=== PATIENT | male | born 2000 | race Caucasian/White ===

== ENCOUNTER 2025-06-15 08:47 | Emergency (ER) | payer OTHER, SELFPAY ==
--- OUTSIDE RECORDS SUMMARY | 2023-06-06 05:00 | XMS_ITS | Continuity of Care Document ---
Author Organization [place] [facility] Address [address] [place] [place] [address] Phone Care Team Providers Care Wide Area Network Systems Administrator Name Role Phone Shimon CRUZARLYN, Sami Unavailable Un available Allergies, Adverse Reactions, Alerts Substance Reaction Status Criticality No Known Allergies Active No Inform ation Medications Medication Instructions Dosage Effective Dates (start - stop) Status Comments Zoloft 50 mg tablet take 1 tablet by ora l route every day 50 MG - Active Procedures Procedure Date STREP A ASSAY W/OPTIC OFFICE/OUTPATIENT VISIT, EST OFFICE/OUTPATIENT VISIT, [facility] Advance Directives Directive Yes / No Effective Date File Name No Information Encounters Encounter Description Practice Location Reason(s) For Visit Diagnoses Date Provider Providers Copied on Encounter OFFICE/OUTPAT IENT VISIT, [facility], [address], [place], [id number], tel:[phone] [facility] Cold symptoms (chief complaint) Acute pharyngitis, unspecified etiology 3 Taylor lawrence [facility] Sami. [address], [id number] , [place]. tel:[phone] Referring Provider: Sami patel [facility], [address], [place], [address] . tel:[phone] OFFICE/OUTPAT IENT VISIT, [facility], [address], [place], [place], [id number], [place] tel:[phone] [facility] STI Testing (chief complaint) sti (chief complaint) note (chief complaint) Exposure to chlamydiaEncounter for screening for infections with a predominantly sexual mode of transmission 3 [place]. [address], [place], [id number] , [place]. tel:[phone] Referring Provider: Katheryn Funk PA-C, [address] [place], [address] . tel:[phone] Family History Family Member Type Diagnosis Age At Onset No Information Payers Payer name Insurance type Covered constitution party ID Dylan wooten(s) [facility] [id number] Social History Type Description Quantity Date Captured Comments Alcohol Use Details Caffeine Use Details energy drinks Tobacco Use Status Current non-smoker Smoking Status Never smoker Sex Male Vital Signs Date / Time: Height Weight BMI Pulse Rate Blood Pressure Temperature Respiratory Rate Body Surface Area Head Circumference Head Circ. Percentile Wt./Shayan. Percentile BMI percentile Pulse Ox Inhaled Ox 11:16 AM 74.00 in 95.254 kg (210.00 lbs) 26.9 6 kg/m eter (2) 84 /min 113/76 mm[Hg] 98.00 F 16 /min 99 % 21 % Chief Complaint And Reason For Visit From encounter dated '06/06/2023 10:00'. Cold symptoms (chief complaint). Description: Onset: 3 days ago. The patient describes the cough asdry. Associated symptoms include chills, cough, dyspnea on exertion, fatigue, nasal congestion, rhinitis, rhinorrhea and sore throat. Pertinent negatives include dyspnea, epistaxis, fever, heartburn,hemoptysis, hoarseness, night sweats, pleuritic pain, post-nasal drainage, sinus pressure, weight loss and wheezing. The patient does not have a history of asthma. Additional information: Pt reports bilateral ear pain. Pt requests note for class. Reason For Referral Reason For Referral No Information Plan Of Treatment Date Type Action Status Future Order: Lab Order Wade cardoso ([id number]), Ordered on: Ordered History Of Present Illness Encounter Date Complaint History Of Prese nt Illness Cold symptoms Onset: 3 days ag o. The patient describes the cough as dry. Associated symptoms include chills, cough, dyspnea on exertion, fatigue, nasal congestion, rhinitis, rhinorrhea and sore throat. Pertinent negatives include dyspnea, epistaxis, fever, heartburn, hemoptysis, hoarseness, night sweats, pleuritic pain, post-nasal drainage, sinus pressure, weight loss and wheezing. The patient does not have a history of asthma. Additional information: Pt reports bilateral ear pain. Pt requests note for class. STI Testing Patient is here for STD testing. He/she is not currently having ANY symptoms. He/ she is here because he was told he was exposed to chlamydia. Patient states that they have no concerns at this time, simply wanting to get screening done. Patient reports:new partner? no multiple partners? yescondom use? no sti note Comments: 18 lif etime partners- never had STI testing in past. 6 partners in the past 6 months. Partner called him last night and informed him she has chlamydia- he last slept with this partner 9 days ago. Denies any symptoms. Functional Status Date Functional Assessmen t No Information Instructions Date Instruction Additional Infor luiz Urine collected to t est for gonorrhea, chlamydia and Trichomonas. Advised patient to avoid any sexual encounters until results have returned.Because patient was exposed to chlamydia, he will be started on doxycycline for treatment.Discussed chlamydia follow-up care with patient assuming his results will be positive. Advised patient that he needs to inform all recent partners to get tested and treated. Advised him to abstain from any sexual interactions for 3 weeks, this is 1 week while on the antibiotic and for 2 weeks following. Advised him that he should return in 8-12 weeks after finishing the antibiotic for confirmation of her medication of the infection.Encouraged patient to get HIV and syphilis testing at this time, patient declined. Related to Exposure to chlamydia Assessments Type Assessment Date assessment Acute pharyngitis, unspecified e tiology impression VS WNLRapid Strep -I ncrease fluidsThroat culture pending. OTC symptomatic treatment as needed Mental Status Date Cognitive Assessment Orientation - [place] ed to time, place, person, situation. Patient Care Teams Name Effective Dates (start - stop) Status Members No Information
[2025-06-15 09:09] VITALS: BP 139/75; O2SAT 95
[2025-06-15 09:10] VITALS: BP 139/75; PULSE 104; TEMP 36.9; O2SAT 98; BMI 25.7
--- NOTE | 2025-06-15 09:40 | US_ITS ---
The [address] [address] Patient Name: RHIANNON BONILLA MRN: [id number] date: 2000 Sex: M Assigned Patient Location: ED.MAIN Current Patient Location: ED.MAIN Accession/Order Number: [id number] Exam Date: 06/15/2025 09:41 Report Date: 06/15/2025 10:48 At the request of: JANINE GREER MD Procedure: US scrotum doppler Scrotal ultrasound Reason for exam: Left testicular pain. Painful left-sided lump for 2 days. Comparison: none Technique: Grayscale, color Doppler and spectral Doppler images of the scrotal contents were obtained. Findings: Right testicle measures 4.7 x 2.2 x 2.7 cm. No evidence of testicular mass or microlithiasis. Normal arterial and venous Doppler waveforms. Epididymis appears unremarkable. No hydrocele. Left testicle measures 4.2 x 2.2 x 2.8 cm. No evidence of testicular mass or microlithiasis. Normal arterial and venous Doppler waveforms. Evidence of epididymitis. Small hydrocele. . US/US scrotum doppler Impression: EVIDENCE OF LEFT-SIDED EPIDIDYMITIS. NO EVIDENCE OF TESTICULAR MASS OR TORSION. Impression dictated by: Johnson Davalos Jr., D.O. 06/15/2025 10:48 AM Dictation Location: [place] [address] Electronically authenticated by: [id number] Y Date: 06/15/2025 10:48
--- OUTSIDE RECORDS SUMMARY | 2025-06-15 09:41 | XMS_ITS | Clinical Summary ---
Author Organization [facility] Address [address] [place] [address] Care Team Providers Care Diet Tech Name Role Phone Stefania Calix MD Primary Care Provider [phone] Zena Shaw DIRECTOR OF PRIMARY Unavailable [phone] Carole Cabrera DIRECTOR OF PRIMARY Unavailable [phone] Allergies No known active allergies Medications MedicationSigDispense QuantityRefillsLast FilledStart DateEnd DateStatus sertraline (Zoloft) 100 MG tablet Indications:DysthymiaTAKE 1 TABLET BY MOUTH EVERY DAY 90 tablet 5Active Active Problems ProblemNoted DateDiagnosed ZlhtKknaoeupn59/19/2023enile tivdbz4501/10/2023T/A fytzpzlkbhv22/19/2023UARS (upper airway resistance syndrome)01/10/2023 Immunizations ImmunizationAdministration DatesNext DueHPV, Cltltgssbloq31/29/2016,03/17/2015 Hep A, ped/adol, 2 dose02/20/2016,03/17/2015Meningococcal EMW7G9002/23/2020 Meningococcal SKP5E3702/22/2014Tdap02/22/20145666Nwlhvxiub30/08/2013 Family History Medical HistoryRelationNameCommentsDiabetes type IIFatherHeart diseaseFather Heart diseaseMaternal GrandfatherDiabetes type IIPaternal GrandfatherHeart diseasePaternal GrandfatherCancerPaternal GrandmotherRelationNameStatusComments FatherAliveMaternal GrandfatherAliveMotherAlivePaternal GrandfatherAlivePaternal GrandmotherDeceased Social History Tobacco UseTypesPacks/DayYears UsedDateSmoking Tobacco: NeverSmokeless Tobacco: Never Tobacco Cessation:Counseling Given: Not Answered Alcohol UseStandard Drinks/LweiQongqdtwGyr53 (1 standard drink = 0.6 oz pure alcohol)Caffeine intake: 2-3 cans per day mountain dew / occasionallyAUDIT-C AnswerDate RecordedQ1: How often do you have a drink containing alcohol?2-3 times a week05/29/2024Q2: How many drinks containing alcohol do you have on a typical day when you are drinking?5 or 6107/29/2023Q3: How often do you have six or more drinks on one occasion?Oaidzq3305/29/2024HQ-2AnswerDate RecordedPatient Health Questionnaire-2 Rrmvu22507/29/2023Sex and Gender InformationValueDate RecordedSex Assigned at BirthNot on fileLegal MywLall8910/06/2022 7:18 PM EDT Gender IdentityNot on fileSexual OrientationNot on file Last Filed Vital Signs Vital SignReadingTime TakenCommentsBlood Nevfqlas979/6005/29/2024 3:48 PM EST Kggwr812205/29/2024 3:48 PM ZXHMbrpsfxtogp29.3 ??C (97.3 ??F)02/11/2023 8:33 AM EDTRespiratory Xpif167704/10/2024 3:10 PM EDTOxygen Ophaaighus09%05/29/2024 3:48 PM ESTInhaled Oxygen Concentration--Zfrxhh77.5 kg (206 lb 3.2 oz)05/29/2024 3:48 PM QZAZxmztr416 cm (6' 2 )05/29/2024 3:48 PM ESTBody Mass Index26.4705/29/2024 3:48 PM EST Plan of Treatment DateTypeDepartmentCare Team (Latest Contact Info)Mjraskfvzxb27/24/2025 1:30 PM ESTOffice Visit [facility] [address] [place] [address] Ghazala Lr NP [address] [place] [address] Health MaintenanceDue DateLast DoneCommentsCOVID-19 Vaccine (1 - 2024-25 season) 2025Influenza Vaccine (#1)2025Pneumococcal Vaccine: Pediatrics (0 to 5 Years) and At-Risk Patients (6 to 64 Years)Aged OutNo longer eligible based on patient's age to complete this topic Insurance Care Teams Team MemberRelationshipSpecialtyStart DateEnd Date Stefania Calix MD [address] [facility] [address] [place], [place] [phone] PCP - GeneralFamily Medicine01/11/23 Carole Cabrera NP [address] [place], [place] [phone] SAGE - Kiley [facility]02/22/25 Zena Shaw NP [facility] [address] [address] Nurse PractitionerFamiAtrium Health Navicent Baldwin01/11/23
[2025-06-15] MEDS: KETOROLAC TROMETHAMINE 60 MG/2 ML VIAL IM (09:52)
--- NOTE | 2025-06-15 10:18 | ED_ITS ---
HPI - Male Genitourinary General Chief complaint: Urogenital-Male Stated complaint: L TESTICLE PAIN/SWELLING, LOW BACK PAIN Time Seen by Provider: 06/15/25 09:16 Source: patient Mode of arrival: ambulance Limitations: no limitations History of Present Illness HPI Narrative: The patient is a 24-year-old male presented to the ER with 2 weeks history of left-sided testicular and penile pain that started after he was masturbating, patient mentioned that at that time he did had an erection but the pain since then has been dull and in the left side of the scrotum. He mentioned that he had no fever no chills He denies any penile discharge or any lesions Related Data Previous Rx's ?Medication ?Instructions ?Recorded doxycycline hyclate 100 mg tablet 100 mg PO BID 7 days #14 tabs 06/15/25 ibuprofen 600 mg tablet 600 mg PO TID PRN pain #20 t abs 06/15/25 Allergies Allergy/AdvReac Type Severity Reaction Status Date / Time No Known Drug Allergies Allergy Verified 06/15/25 09:10 Review of Systems ROS Status of ROS 10 or more systems reviewed and unremark able except as noted in history and below PFSH PFSH Social History Little interest or pleasure in doing things: not at all Feeling down, depressed, or hopeless: not at all Exam Narrative Exam Narrative: Nurses notes and vital signs reviewed and patient is not hypoxic. General: Well-appearing and in no apparent distress. Perineal exam: Scrotal examination showed that the patient have a left testicular enlargement and mild tenderness no lesions or any open wound there is no redness hotness or any signs of cellulitis, the penis is circumcised and there is no acute finding and examination with no lesions and no discharge no open wound Neurological: A&O x4. No cranial nerve dysfunction observed. No truncal ataxia. Moves all extremities. Sensation intact. Psychiatric: Cooperative and interactive. Normal mood and affect. Constitutional Vital Signs, click to edit/add: Last Vital Signs Temp 98.5 F 06/15/25 09:10 Pulse 104 H 06/15/25 09:10 Resp 18 06/15/25 09:10 BP 136/73 06/15/25 12:21 Pulse Ox 98 06/15/25 12:21 O2 Del Method Room Air 06/15/25 09:10 Course Vital Signs Vital signs: Vital Signs Blood Pressure 139/75 06/15/25 09:09 Pulse Oximetry 95 06/15/25 09:09 Temperature 98.5 F 06/15/25 09:10 Pulse Rate 104 H 06/15/25 09:10 Respiratory Rate 18 06/15/25 09:10 Blood Pressure 136/73 06/15/25 12:21 Pulse Oximetry 98 06/15/25 12:21 Oxygen Delivery Method Room Air 06/15/25 09:10 MDM - Male Genitourinary MDM Narrative Medical decision making narrative: Ultrasound of the patient testicles showed that he have epididymitis Urinalysis does confirm a UTI The patient had his urine sent for chlamydia and gonorrhea testing He is sexually active and he was covered in the ER with ceftriaxone discharged home with doxycycline His blood workup did show some leukocytosis but the lactate was not elevated there was no systemic signs of infection Patient to follow-up with urology as outpatient instructed about coming back to the ER in case any fever chills or any other concerns The patient to follow-up with the primary care within 2 to 3 days and to come back to the ER in case of any worsening of the current symptoms or any new symptoms or concerns Lab Data Labs: Lab Results 06/15/25 06/15/25 06/15/25 Range/Units 09:40 10:41 11:27 WBC 15.1 H (4.0-11.0) 10^3/uL RBC 4.37 L (4.70-6.10) 10^6/uL Hgb 13.6 L (14.0-18.0) g/dL Hct 39.4 L (42.0-54.0) % MCV 90.2 (80.0-94.0) fL MCH 31.1 (25.9-34.0) pg MCHC 34.5 (29.9-35.2) g/dL RDW 11.6 (11.0-15.0) % Plt Count 316 (150-450) 10^3/uL MPV 9.6 (9.5-13.5) fL Seg Neuts % (Manual) 89.0 H (43.0-75.0) Lymphocytes % (Manual) 4.0 L (20.5-60.0) % Monocytes % (Manual) 7.0 (1.7-12.0) % Eosinophils % (Manual) 0.0 L (0.9-7.0) % Basophils % (Manual) 0.0 L (0.2-2.0) % Neutrophils # (Manual) 13.43 H (1.4-6.5) 10^3/uL Lymphocytes # (Manual) 0.60 L (1.20-3.80) 10^3/uL Monocytes # (Manual) 1.05 H (0.30-0.80) 10^3/uL Eosinophils # (Manual) 0.00 (0.00-0.70) 10^3/uL Basophils # (Manual) 0.00 (0.00-0.10) 10^3/uL Sodium 138 (136-145) mmol/L Potassium 4.3 (3.5-5.1) mmol/L Chloride 102 (98-107) mmol/L Carbon Dioxide 29.5 (21.0-32.0) mmol/L Anion Gap 10.8 BUN 13.0 (7.0-18.0) mg/dL Creatinine 1.21 (0.70-1.30) mg/dL Est GFR ( Amer) >60 (>=60 mL/min/1.73m^2) Est GFR (Non-Af Amer) >60 (>=60 mL/min/1.73m^2) BUN/Creatinine Ratio 10.7 Glucose 115 H (74-106) mg/dL Lactate 0.6 (0.4-2.0) mmol/L Calcium 9.2 (8.5-10.1) mg/dL Total Bilirubin 1.1 H (0.2-1.0) mg/dL AST 18 (15-37) U/L ALT 31 (16-63) U/L Alkaline Phosphatase 63 (46-116) U/L Total Protein 7.4 (6.4-8.2) g/dL Albumin 3.8 (3.4-5.0) g/dL Globulin 3.6 g/dL Albumin/Globulin Ratio 1.1 Urine Color Lt. yellow (YELLOW) Urine Clarity Cloudy A (CLEAR) Urine pH 6.5 (5.0-9.0) Ur Specific [place] 1.025 (1.005-1.025) Urine Protein 100 A (NEG/TRACE) mg/dL Urine Glucose (UA) Negative (NEGATIVE) mg/dL Urine Ketones Negative (NEGATIVE) mg/dL Urine Occult Blood Moderate A (NEGATIVE) Urine Nitrite Negative (NEGATIVE) Urine Bilirubin Negative (NEGATIVE) Urine Urobilinogen 0.2 (0.2-1.0) EU/dL Ur Leukocyte Esterase Large A (NEGATIVE) Urine RBC 5-10 A (0-2) #/HPF Urine WBC >100 A (NONE SEEN) #/HPF Ur Squamous Epith Cells None seen (NONE/RARE) #/LPF Urine Crystals None seen (None Seen) #/HPF Urine Bacteria Moderate A (NONE SEEN) #/HPF Urine Casts None seen (NONE SEEN) #/LPF Urine Mucus None seen (NONE SEEN) Ur Culture Indicated? Yes-[facility] [place] Discharge Plan Discharge Chief Complaint: Urogenital-Male Clinical Impression: Epididymitis Patient Disposition: Home, Self-Care Time of Disposition Decision: 12:12 Condition: Good Prescriptions / Home Meds: New doxycycline hyclate 100 mg tablet 100 mg PO BID 7 Days Qty: 14 0RF ibuprofen 600 mg tablet 600 mg PO TID PRN (Reason: pain) Qty: 20 0RF Print Language: Turkish Instructions: Epididymitis (ED) Additional Instructions: Please take all your medication with food not on empty stomach Referrals: FREDERICK RUSHING [Primary Care Provider, Family Practice] - 1 week Ruthann Lopez MD [Physician, Urology] - 1 week Discharge Date/Time: 06/15/25 12:26
[2025-06-15 10:21] LABS: Glucose Urine UA NEGATIVE (NEGATIVE)
[2025-06-15 10:46] LABS: Hematocrit 39.4 % (42.0-54.0); Hemoglobin 13.6 g/dL (14.0-18.0); Mean Corpuscular HGB Conc 34.5 g/dL (29.9-35.2); Mean Corpuscular Hemoglobin 31.1 pg (25.9-34.0); Mean Corpuscular Volume 90.2 fL (80.0-94.0); Platelet Count 316 10^3/uL (150-450); Red Blood Count 4.37 10^6/uL (4.70-6.10); White Blood Count 15.1 10^3/uL (4.0-11.0)
[2025-06-15 10:54] LABS: Cast Seen? NONE SEEN #/LPF (NONE SEEN); Crystals Seen? None Seen #/HPF (None Seen); Urine Culture Indicated YES-FRMC
[2025-06-15 11:10] LABS: Alanine Aminotransferase 31 U/L (16-63); Albumin Globulin Ratio 1.1; Albumin Level 3.8 g/dL (3.4-5.0); Alkaline Phosphatase 63 U/L (46-116); Anion Gap 10.8; Aspartate Amino Transferase 18 U/L (15-37); Blood Urea Nitrogen 13.0 mg/dL (7.0-18.0); Calcium 9.2 mg/dL (8.5-10.1); Carbon Dioxide 29.5 mmol/L (21.0-32.0); Chloride 102 mmol/L (98-107); Estimated GFR (African America >60 (>=60 mL/min/1.73m^2); Estimated GFR (Non-African Ame >60 (>=60 mL/min/1.73m^2); Globulin 3.6 g/dL; Glucose 115 mg/dL (74-106); Potassium 4.3 mmol/L (3.5-5.1); Sodium 138 mmol/L (136-145); Total Protein 7.4 g/dL (6.4-8.2)
[2025-06-15 11:22] LABS: Basophils Abs Manual 0.00 10^3/uL (0.00-0.10); Basophils Percent Manual 0.0 % (0.2-2.0); Eosinophils Absolute Manual 0.00 10^3/uL (0.00-0.70); Eosinophils Percent Manual 0.0 % (0.9-7.0); Lymphocytes Absolute Manual 0.60 10^3/uL (1.20-3.80); Lymphocytes Percent Manual 4.0 % (20.5-60.0); Monocytes Absolute Manual 1.05 10^3/uL (0.30-0.80); Monocytes Percent Manual 7.0 % (1.7-12.0); Segmented Neut Absolute Manual 13.43 10^3/uL (1.4-6.5); Segmented Neutrophils % Manual 89.0 (43.0-75.0)
[2025-06-15 12:01] LABS: Lactate/Lactic Acid 0.6 mmol/L (0.4-2.0)
[2025-06-15 12:21] VITALS: BP 136/73; O2SAT 98
[2025-06-17 21:07] LABS: Neisseria gonorrhoeae, NAA Positive (Negative)
== END 2025-06-15 12:26 | disposition home or self-care (01) ==
PROVIDERS: Emergency Provider Emergency Medicine; PCP Family Medicine
DX: N45.1 Epididymitis (principal)
CPT/HCPCS: 36415; 76870; 80053; 81001; 83605; 85007; 85027; 87086; 87491; 87591; 93976; 96372; 99284; J0696; J1885